=== PATIENT | female | born 1990 | race Caucasian/White ===

== ENCOUNTER → 2021-01-09 11:43 | Outpatient (CLI) | payer OTHER, SELFPAY ==
[2021-01-09 12:38] LABS: Add Manual Diff / Slide Review NO; Basophils Absolute Auto 0 /uL (0-100); Basophils Percent Auto 0.6 % (0-2); Eosinophils Absolute Auto 100 /uL (0-450); Hematocrit 32.8 % (36-46); Hemoglobin 11.7 g/dL (12.0-16.0); Lymphocytes Absolute Auto 1200 /uL (1100-4500); Lymphocytes Percent Auto 21.2 % (25-40); Mean Corpuscular HGB Conc 35.6 % (30-36); Mean Corpuscular Hemoglobin 32.8 PG (26-34); Mean Corpuscular Volume 92.4 fL (80-100); Monocytes Absolute Auto 400 /uL (0-900); Monocytes Percent Auto 7.5 % (3-14); Neutrophils Absolute Auto 4000 /uL (1500-7000); Neutrophils Percent Auto 68.7 % (50-75); Platelet Count 234 X10^3/uL (150-400); Red Blood Cell Count 3.55 X10^6/uL (4.0-5.2); Red Cell Distribution Width 13.7 % (11.6-14.8); White Blood Cell Count 5.8 X10^3/uL (4.5-11.0)
[2021-01-09 13:18] LABS: Hepatitis B Surface Antigen NEGATIVE s/c (NEGATIVE); Rubella Antibody IgG 62.5 IU/mL (>15)
[2021-01-09 13:32] LABS: HIV 1 & 2 Ab/Ag 4th Gen Combo NEGATIVE (NEGATIVE); Hep C Virus Ab w/Reflex Quant NEGATIVE s/c (NEGATIVE)
[2021-01-09 18:16] LABS: Appearance Urine UA SL CLOUDY; Bilirubin Urine UA NEGATIVE (NEGATIVE); Color Urine UA YELLOW; Glucose Urine UA NEGATIVE (Negative); Ketones Urine UA 1+ (NEGATIVE); Leukocyte Esterase Urine UA NEGATIVE (NEGATIVE); Nitrite Urine UA NEGATIVE (Negative); Occult Blood Urine UA 2+ (Negative); Protein Urine UA NEGATIVE (Negative); Specific Gravity Urine UA 1.015 (1.000-1.035); Urobilinogen Urine UA 0.2 E.U./dL (0.2)
[2021-01-09 18:54] LABS: Amorphous Sediment Urine 1+; Bacteria Urine Few (2-10); Calcium Oxalate Crystals Urine Few; Culture Indicated Urine Cult Not Indicated; RBC Urine 10-30/HPF (0-5/HPF); Squamous Epithelial Cell Urine 5-10 /HPF (0-5/HPF); Transitional Epi Cells Urine 1-5/HPF (0-5/HPF); WBC Urine 1-5/HPF (0-5/HPF)
[2021-01-10 07:43] LABS: RPR Screen Non Reactive (Non Reactive)
[2021-01-10 08:14] LABS: Varicella IgG Antibody 802 index (Immune >165)
[2021-01-11 20:39] LABS: AFP, Serum 60.8 ng/mL (.); Estriol, Free 1.12 ng/mL (.); Inhibin A, Dimeric 194.03 pg/mL (.); Inhibin A, MoM 1.16 (.); Maternal Ethnicity Caucasian (.); Maternal Weight 138 lbs (.); Number of Fetuses No (.); OSBR Risk 1 IN 1757 (.); Results Report (.); Test Results *Screen Negative* (.); hCG, MoM 1.15 (.); hCG, Serum 50159 mIU/mL (.)
== END ==
PROVIDERS: Referring Provider Obstetrics & Gynecology; Visit Provider Obstetrics & Gynecology
DX: Z34.02 Encounter for supervision of normal first pregnancy, second trimester (principal); Z3A.16 16 weeks gestation of pregnancy
CPT/HCPCS: 36415; 80055; 81003; 81015; 82105; 82677; 84702; 86336; 86787; 86803; 86850; 86900; 86901; 87086; 87389

== ENCOUNTER → 2021-02-06 17:41 | Outpatient (CLI) | payer OTHER, SELFPAY ==
[2021-02-06 21:34] LABS: Urine N gonorrhoeae NOT DETECTED
[2021-02-06 21:35] LABS: Urine Chlamydia NOT DETECTED
== END ==
PROVIDERS: Visit Provider Obstetrics & Gynecology
DX: Z34.82 Encounter for supervision of other normal pregnancy, second trimester (principal); Z3A.20 20 weeks gestation of pregnancy
CPT/HCPCS: 87491; 87591

== ENCOUNTER → 2021-03-09 12:33 | Outpatient (CLI) | payer OTHER, SELFPAY ==
[2021-03-09 14:51] LABS: GTT (PREG) 1 Hour PP 50gm Dose 127 mg/dL (76-139)
[2021-03-09 14:54] LABS: Hematocrit 30.9 % (36-46); Hemoglobin 10.9 g/dL (12.0-16.0)
== END ==
PROVIDERS: Referring Provider Obstetrics & Gynecology; Visit Provider Obstetrics & Gynecology
DX: O26.899 Other specified pregnancy related conditions, unspecified trimester (principal); Z67.91 Unspecified blood type, Rh negative; Z3A.26 26 weeks gestation of pregnancy
CPT/HCPCS: 36415; 82950; 85014; 85018; 86850

== ENCOUNTER → 2021-04-12 11:11 | Outpatient (CLI) | payer OTHER, SELFPAY ==
[2021-04-12 12:31] LABS: Hematocrit 32.3 % (36-46); Hemoglobin 11.4 g/dL (12.0-16.0)
== END ==
PROVIDERS: Referring Provider Obstetrics & Gynecology; Visit Provider Obstetrics & Gynecology
DX: D64.9 Anemia, unspecified (principal)
CPT/HCPCS: 36415; 85014; 85018